=== PATIENT | male | born 1950 | race Caucasian/White ===

== ENCOUNTER → 2024-04-12 | Outpatient (BNVA) | payer MEDICARE, SELFPAY | END | disposition home or self-care (01) | PROVIDERS: PCP Internal Medicine; Referring Provider Internal Medicine; Visit Provider Urology | DX: C61 Malignant neoplasm of prostate (principal); C64.2 Malignant neoplasm of left kidney, except renal pelvis; N39.3 Stress incontinence (female) (male); N52.9 Male erectile dysfunction, unspecified; E11.9 Type 2 diabetes mellitus without complications; I10 Essential (primary) hypertension; I25.10 Atherosclerotic heart disease of native coronary artery without angina pectoris; N20.0 Calculus of kidney | CPT/HCPCS: 81003; 99212; G0463 ==

== ENCOUNTER → 2024-07-12 | Outpatient (BNVA) | payer MEDICARE, SELFPAY | END | disposition home or self-care (01) | PROVIDERS: PCP Internal Medicine; Referring Provider Internal Medicine; Visit Provider Urology | DX: C61 Malignant neoplasm of prostate (principal); C64.2 Malignant neoplasm of left kidney, except renal pelvis; N39.3 Stress incontinence (female) (male); N52.9 Male erectile dysfunction, unspecified; E11.9 Type 2 diabetes mellitus without complications; I11.0 Hypertensive heart disease with heart failure; I50.9 Heart failure, unspecified; I25.10 Atherosclerotic heart disease of native coronary artery without angina pectoris; E66.9 Obesity, unspecified; Z68.33 Body mass index [BMI] 33.0-33.9, adult; E78.00 Pure hypercholesterolemia, unspecified; Z95.1 Presence of aortocoronary bypass graft | CPT/HCPCS: 81003; 99212; G0463 ==

== ENCOUNTER → 2024-12-22 | Outpatient (CLI) | payer MEDICARE, SELFPAY ==
--- NOTE | 2024-12-22 15:00 | XR_ITS ---
Examination: Retroperitoneal ultrasound, complete Technique: Multiple high resolution grayscale images of the retroperitoneum obtained, including kidneys and bladder. Exam date and time:December 22, 2024 1446 hours INDICATIONS: Prostate carcinoma diagnosis 12 years ago, kidney carcinoma diagnosis 12 years ago FINDINGS: Right kidney 12.1 cm renal cortex 1.3 cm Midpole 12 mm cyst Left kidney 8.2 cm cortex 1.1 cm 10 mm lower pole cyst No bladder mass or bladder calculi Bladder prevoid volume 489 cc No prostate tissue IMPRESSION: Bilateral renal cortical thinning Partial left nephrectomy No hydronephrosis
== END | disposition home or self-care (01) ==
PROVIDERS: PCP Internal Medicine; Referring Provider Internal Medicine; Visit Provider Internal Medicine
DX: N17.9 Acute kidney failure, unspecified (principal); Z90.5 Acquired absence of kidney
CPT/HCPCS: 76770

== ENCOUNTER → 2025-01-10 | Outpatient (BNVA) | payer MEDICARE, SELFPAY | END | disposition home or self-care (01) | PROVIDERS: PCP Internal Medicine; Referring Provider Internal Medicine; Visit Provider Urology | DX: C61 Malignant neoplasm of prostate (principal); N39.3 Stress incontinence (female) (male); N52.9 Male erectile dysfunction, unspecified; E11.9 Type 2 diabetes mellitus without complications; I10 Essential (primary) hypertension; I25.10 Atherosclerotic heart disease of native coronary artery without angina pectoris; E66.9 Obesity, unspecified; Z68.35 Body mass index [BMI] 35.0-35.9, adult; N28.89 Other specified disorders of kidney and ureter; E78.00 Pure hypercholesterolemia, unspecified; G47.30 Sleep apnea, unspecified | CPT/HCPCS: 81003; 99213; G0463 ==

== ENCOUNTER → 2025-05-12 | Outpatient (CLI) | payer MEDICARE, SELFPAY ==
--- NOTE | 2025-05-12 13:10 | XR_ITS ---
EXAMINATION: Cervical spine, 5 views Technique: Cervical spine AP, AP odontoid, lateral, bilateral obliques, 5 views Exam date and time: May 12, 2002 5, 1232 hours INDICATIONS: Neck pain beginning 2 weeks ago. FINDINGS: Straightening normal cervical lordosis No cervical fracture Intact odontoid Advanced degenerative disc disease C6-C7, C7-T1 Mild to moderate bilateral diffuse neuroforaminal stenosis most severe C6-C7 IMPRESSION: Advanced degenerative disc disease C6-C7, C7-T1
== END | disposition home or self-care (01) ==
LOC: SDIM 12:48
PROVIDERS: PCP Internal Medicine; Referring Provider Internal Medicine; Visit Provider Internal Medicine
DX: M50.323 Other cervical disc degeneration at C6-C7 level (principal); M50.33 Other cervical disc degeneration, cervicothoracic region
CPT/HCPCS: 72050

== ENCOUNTER 2025-05-30 11:15 | Outpatient (RCR) | payer MEDICARE, SELFPAY ==
--- NOTE | 2025-05-30 11:38 | PTNOTE_ITS ---
PT OP Initial Eval Patient Information Outpatient Physical Therapy Treatment Date: 05/30/25 Visit Reasons: NECK PAIN Medical Diagnosis: M54.2 Treatment Dx #1: Neck Pain Start of Care: 05/30/25 Date of Onset: 3 months ago Smoking Status Smoking Status: Never smoker Initial Assessment Subjective: Pt is a 75 y/o male reports of neck pain ~ 3 months ago after he golf. Pt's most recent xray showed moderate to severe DDD of the C6-C7 and C7-T1 segment. Since Pt's injury Pt has seen Dr Viramontes (chiropractor); Dr Viramontes seem to take care of the issue. Pt has been able to resume all ADLs and does not need physical therapy. Objective: C/S AROM: all motions are WFL BUE AROM: all motions are WNL BUE MMTs: grossly 4-/5 Assessment: Pt demonstrate functional c/s mobility and UE strength with no pain at this time. Pt has been able to resume all ADLs without limitation. Pt will not benefit from skilled physical therapy. Pt was evaluated and d/c from care and instructed to see PCP as needed, thank you for your referrals. Short Term and Care Home Goals 1) Eval and D/C 2) Follow up with [facility] Treatment Plan Frequency and Duration: 1x Certification Dates: 05/30/25 to 08/28/25 Procedure Charges OP PT Eval Mod Complex 30 minutes: Yes
== END 2025-06-08 23:59 | disposition home or self-care (01) ==
LOC: CPTX 11:15
PROVIDERS: PCP Internal Medicine; Referring Provider Internal Medicine; Visit Provider Internal Medicine
DX: M50.323 Other cervical disc degeneration at C6-C7 level (principal)
CPT/HCPCS: 97162